=== PATIENT | female | born 1950 | race Caucasian/White ===

== ENCOUNTER 2019-01-25 09:22 | Emergency (ER) | payer MEDICARE, BC ==
--- OUTSIDE RECORDS SUMMARY | 2019-01-25 09:29 | XMS REPORT | Continuity of Care Document ---
:1950 External Reference #:[id number] Author Name Oseas Gibran Care Team Providers Name Role Phone Cynthia Almaguer MD Primary Care Physician Unavailable Payers Date Identification Numbers Payment Provider Subscriber Effective: 2016 Policy Number: [id number] Medicare Bernadette Bassett PayID: [id number] [address] [place] [address] Policy Number: [id number] [facility] Bernadette Bassett PayID: [id number] [address] [place] [address] Advance Directives Description No Information Available Problems Active Problems Provider Date Degenerative joint disease of hand Nicolle Gonzalez M.D. Onset: 04/01/2015 Family History Date Family Member(s) Observation Comments General Heart Disease FATHER General Cancer MOTHER Social History Type Date Description Comments Sex Unknown Tobacco Use Start: Unknown End: Unknown Patient is a former smoker Smoking Status Reviewed: 01/08/19 Patient is a former smoker Allergies, Adverse Reactions, Alerts Description No Known Drug Allergies Medications Active Medications SIG Qnty Indications Ordering Provider Date Voltaren 2 gm four times a 300gm M19.041 Nicolle Gonzalez, 01/08/2019 1% Gel day as needed M.D. Meloxicam 1 by mouth daily 60tabs M19.041 Nicolle Gonzalez, 04/03/2018 7.5mg as needed pain M.D. Tablets for 1 week, increase to 2 per day if no relief Cymbalta 1 by mouth every Unknown 20mg Caps DR day Part Vitamin E-200 1 by mouth every Unknown 200Unit day Capsules Vitamin B Complex 1 by mouth every Unknown day Tablets Sumatriptan as needed Cynthia Almaguer MD Succinate 100mg Tablets History Medications Hydrocodone-Acetaminophen 1-2 tabs by 40tabs Nicolle 12/20/2015 - 5-325mg Tablets mouth every 4- Wes Gonzalez 04/11/2016 6 hours as needed pain Diclofenac Sodium apply 2tubes Nicolle 01/28/2014 - 3% Gel topoically bid Wes Gonzalez 04/02/2018 prn Pennsaid apply topically 2bottles Nicolle 01/15/2014 - 1.5% Solution to hands up to Wes Gonzalez 04/22/2014 3 times daily Celebrex once daily Unknown - 200mg Unknown Effexor XR Unknown - 04/02/2018 Venlafaxine HCL Unknown - 04/22/2014 Omeprazole Unknown - 04/02/2018 Imitrex Unknown - 04/02/2018 Medications Administered in Office Medication SIG Qnty Indications Ordering Provider Date Depomedrol 40MG Nicolle Gonzalez M.D. 09/02/2015 Injection Depomedrol 40MG Nicolle Gonzalez M.D. 06/28/2015 Injection Depomedrol 40MG Nicolle Gonzalez M.D. 04/01/2015 Injection Depomedrol 80MG Nicolle Gonzalez M.D. 01/14/2015 Injection Depomedrol 80MG Nicolle Gonzalez M.D. 08/31/2014 Injection Depomedrol 40MG Nicolle Gonzalez M.D. 04/23/2014 Injection Depomedrol 40MG Nicolle Gonzalez M.D. 01/15/2014 Injection Depomedrol 80MG Nicolle Gonzalez M.D. 09/11/2013 Injection Depomedrol 40MG Nicolle Gonzalez M.D. 09/11/2013 Injection Depomedrol 80MG Nicolle Gonzalez M.D. 02/13/2013 Injection Immunizations Description No Information Available Vital Signs Date Vital Result Comment 01/08/2019 1:25pm Height 61.25 inches 5'1.25" Weight 113.00 lb Heart Rate 88 /min BP Systolic 106 mmHg BP Diastolic 60 mmHg Body Temperature 97.9 F Pain Level 7 BMI (Body Mass Index) 21.2 kg/m2 04/03/2018 10:05am Height 61.25 inches 5'1.25" Weight 113.75 lb Heart Rate 80 /min BP Systolic 100 mmHg BP Diastolic 62 mmHg Respiratory Rate 16 /min Body Temperature 98.1 F Pain Level 7 BMI (Body Mass Index) 21.3 kg/m2 03/15/2017 9:06am Height 62 inches 5'2" Weight 117.00 lb BP Systolic 110 mmHg BP Diastolic 76 mmHg Respiratory Rate 15 /min Body Temperature 97.8 F Pain Level 0 BMI (Body Mass Index) 21.4 kg/m2 05/01/2016 10:44am Height 62 inches 5'2" Weight 122.00 lb per pt Pain Level 0 BMI (Body Mass Index) 22.3 kg/m2 01/12/2016 11:29am Height 62 inches 5'2" Weight 119.00 lb Pain Level 1 BMI (Body Mass Index) 21.8 kg/m2 01/03/2016 2:10pm Height 62 inches 5'2" Weight 119.00 lb Body Temperature 98.6 F Pain Level 2 BMI (Body Mass Index) 21.8 kg/m2 12/20/2015 11:33am Height 62 inches 5'2" Weight 119.00 lb Heart Rate 72 /min BP Systolic 115 mmHg BP Diastolic 79 mmHg BMI (Body Mass Index) 21.8 kg/m2 12/20/2015 10:56am Height 62 inches 5'2" Weight 120.00 lb Pain Level 9 BMI (Body Mass Index) 21.9 kg/m2 09/02/2015 8:49am Height 62 inches 5'2" Weight 120.00 lb Pain Level 4 BMI (Body Mass Index) 21.9 kg/m2 06/28/2015 12:03pm Height 62 inches 5'2" Weight 120.00 lb Pain Level 7 BMI (Body Mass Index) 21.9 kg/m2 04/01/2015 1:06pm Height 62 inches 5'2" Weight 120.00 lb Pain Level 4 BMI (Body Mass Index) 21.9 kg/m2 01/14/2015 9:28am Height 62 inches 5'2" Weight 120.00 lb Pain Level 6 BMI (Body Mass Index) 21.9 kg/m2 04/23/2014 8:17am Height 62 inches 5'2" Weight 120.00 lb Heart Rate 90 /min BMI (Body Mass Index) 21.9 kg/m2 01/15/2014 8:14am Height 62 inches 5'2" Weight 120.00 lb Heart Rate 102 /min BP Systolic 114 mmHg BP Diastolic 70 mmHg BMI (Body Mass Index) 21.9 kg/m2 Results Test Date Facility Test Result H/L Range Note Laboratory test 12/28/2015 [facility] Surgical SEE RESULT [address] Pathology BELOW [place], [place] [id number] [phone] 1 SEE RESULT BELOW Name: BERNADETTE BASSETT : [address]: Nicolle Gonzalez MD Acct: [id number] Unit: [id number] AGE: 65 Location: [facility] Re12/28/15 SEX: F Status: REG [facility] SPEC: [id number] ANDRADE: 12/28/15-[address]: Nicolle Gonzalez MD REQ: [id number] RECD: 12/28/15930 STATUS: SOUT _ ORDERED: Andresal, LEVEL III FINAL DIAGNOSIS Right hand, index and small finger, PIP joint, arthroplasty: -- Severe degenerative osteoarthritic changes. 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 Medical Research Assistant sections, one cassette following decalcification. MICROSCOPIC DESCRIPTION Signed (signature on file) Noé Santana MD 1158 END OF REPORT * ML=Testing performed at Main Lab DEPARTMENT OF PATHOLOGY, [address] [place] [address] Noé Santana M.D. Director [facility] # [id number] Procedures Date Code Description Status 01/08/2019 Inject/Drain Joint/Bursa Small W/O US Completed 12/28/2015 93236 Arthroplasty Interphalangeal Joint W/Prosthetic Implant Completed 12/28/2015 95359 Arthroplasty Interphalangeal Joint W/Prosthetic Implant Completed 12/28/2015 57289 Arthroplasty Interphalangeal Joint W/Prosthetic Implant Completed 09/02/2015 Inject/Drain Joint/Bursa Small W/O US Completed 09/02/2015 Inject/Drain Joint/Bursa Small W/O US Completed 06/28/2015 Inject/Drain Joint/Bursa Small W/O US Completed 04/01/2015 Inject/Drain Joint/Bursa Small W/O US Completed 04/01/2015 Inject/Drain Joint/Bursa Small W/O US Completed 01/14/2015 Inject/Drain Joint/Bursa Small W/O US Completed 08/31/2014 Inject/Drain Joint/Bursa Small W/O US Completed 04/23/2014 Inject/Drain Joint/Bursa Small W/O US Completed 01/15/2014 Inject/Drain Joint/Bursa Small W/O US Completed 09/11/2013 Inject/Drain Joint/Bursa Small W/O US Completed 09/11/2013 Injection Single Tendon Origin/Insertion Completed 02/13/2013 01903 Rad Exam; Fingers Completed 02/13/2013 Inject Tendon Sheath Or Ligament Aponeurosis Eg Plantar Completed Fascia Encounters Type Date Location Provider Dx Diagnosis Office Visit 04/03/2018 [facility] Abrahan Lott9.041 Primary 9:30a [facility] Harvey osteoarthritis, right hand M18.12 Unil primary osteoarth of first carpometacarp joint, l hand Office Visit 03/15/2017 Orthopedic Nicolle Gauthier9.041 Primary 9:00a [facility] Wes Gonzalez, C.M.A. right hand Office Visit 05/01/2016 Orthopedic Nicolle M19.041 Primary 10:30a [facility] Wes Gonzalez osteoarthritis, C.M.A. right hand M24.241 Disorder of ligament, right hand Office Visit 12/20/2015 Orthopedic Nicolle M19.041 Primary 10:50a [facility] Wes Gonzalez osteoarthritis, C.M.A. 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 716.84 Arthropathy Other Spec Hand 715.94 Osteoarthrosis Unspec Genlzd Or Localized Hand Office Visit 02/13/2013 9:30a Orthopedic Nicolle Gonzalez 727.03 Trigger Finger [facility] Wes Victoria C.M.A. Plan of Treatment 01/08/2019 - Nicolle Gonzalez M.D.M19.041 Primary osteoarthritis, right handNew Medication:Voltaren 1 % - 2 gm four times a day as neededNew Therapy:Physical TherapyFollow up:Follow up: As [id number] Primary osteoarthritis, left handNew Therapy:Physical Therapy
[2019-01-25 09:33] VITALS: BP 119/81
--- NOTE | 2019-01-25 09:40 | UC ---
Lower Extremity/Ankle HPI - HPI Summary HPI Summary: patient accidently struck ground with R foot last roberto carlos while kicking a ball for her dog. R great toe and foot swollen, black and blue and painful - History of Current Complaint Chief Complaint: UCLowerExtremity Stated Complaint: RT TOE INJURY Time Seen by Provider: 01/25/19 09:31 Hx Obtained From: Patient Onset/Duration: Sudden Onset Severity Initially: Severe Severity Currently: Moderate Pain Intensity: 8 Aggravating Factor(s): Standing, Ambulation Alleviating Factor(s): Rest, Elevation Able to Bear Weight: Yes - with pain - Allergies/Home Medications Allergies/Adverse Reactions: Allergies Allergy/AdvReac Type Severity Reaction Status Date / Time No Known Allergies Allergy Verified 01/25/19 09:28 PMH/Surg Hx/FS Hx/Imm Hx Previously Healthy: Yes Neurological History: Migraine Psychological History: Depression - Surgical History Surgical History: Yes Surgery Procedure, Year, and Place: RIGHT MASTECTOMY WITH LND 2000. RIGHT BREAST RECONSTRUCTION X3. ANKLE ORIF 1999 [facility]. LEFT THUMB SURGERY 2010 [facility]. Right hand joint replacement in 1st drigit and 5th digit - Family History Known Family History: Positive: Cardiac Disease, Hypertension - Social History Occupation: Retired Lives: With Family Alcohol Use: Daily Alcohol Amount: 2 drinks daily Substance Use Type: None Smoking Status (MU): Former Smoker Have You Smoked in the Last Year: No When Did the Patient Quit Smoking/Using Tobacco: 40 yrs ago Review of Systems All Other Systems Reviewed And Are Negative: Yes Constitutional: Positive: Negative Skin: Positive: Bruising - R great toe Respiratory: Positive: Negative Cardiovascular: Positive: Negative Musculoskeletal: Positive: Decreased ROM - R great toe Neurological: Positive: Negative Psychological: Positive: Negative Physical Exam Triage Information Reviewed: Yes Appearance: Well-Appearing, No Pain Distress, Well-Nourished Vital Signs: Initial Vital Signs Temp 98.3 F 01/25/19 09:29 Pulse 86 01/25/19 09:29 Resp 16 01/25/19 09:29 BP 119/81 01/25/19 09:29 Pulse Ox 100 01/25/19 09:29 Vital Signs Reviewed: Yes Respiratory Exam: Normal Cardiovascular Exam: Normal Musculoskeletal: Positive: ROM Limited @ - R great toe, ecchymosis, swelling, pain, extends to top of foot 1st MCP area Neurological Exam: Normal Psychological Exam: Normal Skin: Negative: Rashes Diagnostics - Radiology No standard instances Radiology Interpretation Completed By: Radiologist - states no fracture Lower Extremity Course/Dx - Differential Dx/Diagnosis Differential Diagnosis/HQI/PQRI: Contusion, Fracture (Closed), Sprain, Strain Provider Diagnosis: Fracture of toe of right foot Discharge - Sign-Out/Discharge Documenting (check all that apply): Patient Departure All imaging exams completed and their final reports reviewed: No - Discharge Plan Condition: Good Disposition: HOME Patient Education Materials: Toe Fracture (ED) Referrals: Cynthia Almaguer MD [Primary Care Provider] - Waylon Mary MD [Medical Doctor] - 2 Days Additional Instructions: ice and elevate foot use orthopedic shoe until cleared by orthopedics ibuprofen over the counter as directed for pain - Billing Disposition and Condition Condition: GOOD Disposition: Home
== END 2019-01-25 10:55 | disposition home or self-care (01) ==
LOC: UCEAST 09:22
DX: S99.921A Unspecified injury of right foot, initial encounter (principal); S90.111A Contusion of right great toe without damage to nail, initial encounter; W22.8XXA Striking against or struck by other objects, initial encounter; Y92.096 Garden or yard of other non-institutional residence as the place of occurrence of the external cause; Z96.691 Finger-joint replacement of right hand; Z87.891 Personal history of nicotine dependence
CPT/HCPCS: 99212; G0463

== ENCOUNTER 2023-10-07 08:39 | Observation (INO) ==
[2023-10-07 09:11] LABS: ABS Lymphocytes 1.4 10^3/uL (1.0-4.8); ABS Monocytes 0.6 10^3/uL (0.0-0.9); ABS Neutrophils 4.3 10^3/uL (1.5-7.6); Eosinophil % 0.5 %; Hematocrit 38.9 % (35-45); Hemoglobin 13.2 g/dL (11.5-14.3); Lymphocyte % 21.6 %; Mean Corpuscular Hemoglobin 31.6 pg (27-33); Mean Corpuscular Volume 93.1 fL (80-97); Mean Platelet Volume 6.3 fL (7.5-11.2); Platelet Count 324 10^3/uL (150-450); Red Blood Count 4.18 10^6/uL (3.63-4.92); White Blood Count 6.3 10^3/uL (3.8-11.8)
[2023-10-07 09:21] LABS: INR 0.88 (0.83-1.13)
[2023-10-07 09:31] LABS: ALT 21 U/L (7-52); AST 22 U/L (13-39); Albumin 4.3 g/dL (3.2-5.2); Albumin/Globulin Ratio 1.4 (1-3); Alkaline Phosphatase 67 U/L (35-149); Anion Gap 9 mmol/L (2-16); Blood Urea Nitrogen 13 mg/dL (6-24); CO2 Carbon Dioxide 27 mmol/L (22-32); Calcium 9.3 mg/dL (8.6-10.3); Chloride 98 mmol/L (101-111); Creatinine, Serum 0.79 mg/dL (0.51-0.95); Globulin 3.1 g/dL (2-4); Glucose 139 mg/dL (70-100); Potassium 3.9 mmol/L (3.5-5.0); Sodium 134 mmol/L (135-145); Total Bilirubin 0.5 mg/dL (0.2-1.0); Total Protein 7.4 g/dL (6.4-8.9); eGFR CKD-EPI 79.9 (>60)
[2023-10-07 09:37] LABS: High Sens Troponin Baseline < 3 pg/mL (<15)
[2023-10-07] MEDS ORDERED: Lactated Ringers 1000 ml BAG 1,000 ML IV ONE ×2 (10:09)
[2023-10-07 10:32] LABS: High Sensitivity Troponin 1 Hr 3 pg/mL (<15)
[2023-10-07] MEDS ORDERED: Enoxaparin 40 MG/0.4 ML SYR SUBCUT SCH ×2 (14:00→16:00)
[2023-10-07 14:36] LABS: Urine Benzodiazepine Screen None Detected (None Detect); Urine Cannabinoids Screen None Detected (None Detect); Urine Opiates Screen None Detected (None Detect)
[2023-10-08] MEDS ORDERED: DULoxetine DR 60 mg CAP PO SCH (09:00)
[2023-10-08 11:59] VITALS: BP 120/77
== END 2023-10-08 14:00 | disposition home or self-care (01) ==
LOC: EDHOLD 08:39 → ED 08:39 → MEDTELE 14:37
PROVIDERS: ADMIT Hospitalist; ATTEND Hospitalist